=== PATIENT | female | born 1995 | race Caucasian/White ===

== ENCOUNTER → 2024-05-24 15:36 | Outpatient (REF) | payer OTHER, SELFPAY | LOC: HWRAD 15:36 | PROVIDERS: ATTENDING PHYSICIAN Nurse Practitioner Family; FAMILY PHYSICIAN Nurse Practitioner Adult Health | DX: R07.9 Chest pain, unspecified (principal); R06.09 Other forms of dyspnea | CPT/HCPCS: 71046 ==